=== PATIENT | female | born 1990 | race African-American/Black ===

== ENCOUNTER 2024-05-04 15:14 | Emergency (ER) | payer OTHER ==
[2024-05-04 15:32] VITALS: TEMP 98; BMI 36.8
[2024-05-04 17:13] LABS: BASO % 0.9 % (0-2.0); EOS % 2.4 % (0-4.5); LYMPH % 27.9 % (8-40); MCH 23.9 pg (25.7-33.7); MCHC 32.6 g/dl (32.0-36.0); MEAN CELL VOLUME 73.3 fl (80-96); MEAN PLT VOLUME 8.3 fl (7.5-11.1); MONO % 6.9 % (3.8-10.2); NEUT % 61.9 % (42.8-82.8); PLATELET COUNT 305 10^3/uL (134-434); RBC 5.04 M/mm3 (3.60-5.2); RDW 15.7 % (11.6-15.6); WHITE BLOOD COUNT 6.6 K/mm3 (4.0-10.0)
[2024-05-04 17:18] LABS: HCG,QUALITATIVE URINE Negative
[2024-05-04 17:19] LABS: EPI CELLS 12 /uL (0-25.1); HYALINE CASTS 1 /uL (0-3.1); URINE APPEARANCE CLEAR; URINE BACTERIA 11 /uL (0-1359); URINE BILIRUBIN NEGATIVE (NEGATIVE); URINE COLOR YELLOW; URINE GLUCOSE (UA) NEGATIVE (NEGATIVE); URINE KETONE TRACE (NEGATIVE); URINE LEUK ESTERASE NEGATIVE (NEGATIVE); URINE NITRITE NEGATIVE (NEGATIVE); URINE PROTEIN NEGATIVE (NEGATIVE); URINE RBC 8 /uL (0-23.9); URINE WBC 8 /uL (0-25.8)
[2024-05-04 17:52] LABS: POTASSIUM 4.2 mmol/L (3.5-5.1)
[2024-05-04 17:54] LABS: CALCIUM 9.4 mg/dL (8.5-10.1)
[2024-05-04 17:55] LABS: ALBUMIN 3.8 g/dl (3.4-5.0); BLOOD UREA NITROGEN 8.2 mg/dL (7-18)
[2024-05-04 17:58] LABS: CREATININE 0.9 mg/dL (0.55-1.3)
[2024-05-04 18:00] LABS: BILIRUBIN,TOTAL 0.7 mg/dL (0.2-1); TOT PROT 7.3 g/dl (6.4-8.2)
[2024-05-04] MEDS ORDERED: PANTOPRAZOLE SODIUM 40 MG VIAL ONE (18:52)
[2024-05-04] MEDS: PANTOPRAZOLE SODIUM 40 MG VIAL IVPUSH ONE (19:02)
[2024-05-04 20:24] VITALS: BP 112/72; PULSE 70; RESP 18
== END 2024-05-04 20:24 | disposition home or self-care (01) ==
LOC: JER 15:14
PROC: 3E033GC Introduction of Other Therapeutic Substance into Peripheral Vein, Percutaneous Approach (ICD-10-PCS; principal; 2024-05-04)
DX: R19.5 Other fecal abnormalities (principal); R10.84 Generalized abdominal pain
CPT/HCPCS: 36415; 74177-TC; 80053; 81003; 82272; 83690; 84703; 85025; 87077; 87086; 99285-25; Q9967

== ENCOUNTER 2024-07-27 15:52 | Emergency (ER) | payer OTHER ==
[2024-07-27 16:01] VITALS: TEMP 98.2; BMI 35.2
[2024-07-27] MEDS ORDERED: ACETAMINOPHEN INJECTION 100 ML ONE (16:50)
[2024-07-27] MEDS: ACETAMINOPHEN 1000 MG/100 ML BAG IVPB ONE (17:15)
[2024-07-27 17:22] LABS: BASO % 1.2 % (0-2.0); EOS % 3.7 % (0-4.5); HEMATOCRIT 39.8 % (32.4-45.2); HEMOGLOBIN 12.7 GM/dL (10.7-15.3); LYMPH % 24.5 % (8-40); MCH 23.2 pg (25.7-33.7); MCHC 31.9 g/dl (32.0-36.0); MEAN CELL VOLUME 72.5 fl (80-96); MEAN PLT VOLUME 8.7 fl (7.5-11.1); MONO % 8.5 % (3.8-10.2); NEUT % 62.1 % (42.8-82.8); PLATELET COUNT 359 10^3/uL (134-434); RBC 5.49 M/mm3 (3.60-5.2); RDW 16.1 % (11.6-15.6); WHITE BLOOD COUNT 6.9 K/mm3 (4.0-10.0)
[2024-07-27 17:38] LABS: POTASSIUM 4.3 mmol/L (3.5-5.1)
[2024-07-27 17:40] LABS: ALBUMIN 3.8 g/dl (3.4-5.0); BLOOD UREA NITROGEN 8.8 mg/dL (7-18); CALCIUM 9.5 mg/dL (8.5-10.1); MAGNESIUM 2.1 mg/dL (1.8-2.4)
[2024-07-27 17:44] LABS: CREATININE 0.9 mg/dL (0.55-1.3)
[2024-07-27 17:45] LABS: BILIRUBIN,TOTAL 0.4 mg/dL (0.2-1); TOT PROT 7.3 g/dl (6.4-8.2)
[2024-07-27 17:59] LABS: EPI CELLS >36 /uL (0-25.1); HCG,QUALITATIVE URINE Negative; HYALINE CASTS 1 /uL (0-3.1); URINE APPEARANCE CLEAR; URINE BACTERIA 330 /uL (0-1359); URINE BILIRUBIN NEGATIVE (NEGATIVE); URINE COLOR YELLOW; URINE GLUCOSE (UA) NEGATIVE (NEGATIVE); URINE KETONE TRACE (NEGATIVE); URINE LEUK ESTERASE 1+ (NEGATIVE); URINE NITRITE NEGATIVE (NEGATIVE); URINE PROTEIN NEGATIVE (NEGATIVE); URINE RBC 17 /uL (0-23.9); URINE UROBILINOGEN 0.2 mg/dL (0.2-1.0); URINE WBC 26 /uL (0-25.8)
[2024-07-27 19:25] LABS: HIV INTERPRETATION NEGATIVE (NEGATIVE)
[2024-07-27] MEDS ORDERED: FLUCONAZOLE 150 MG TABLET PO ONE (19:44)
[2024-07-27] MEDS ORDERED: CEFTRIAXONE 1 GM/50 ML BAG ONE (19:45)
[2024-07-27] MEDS: FLUCONAZOLE 150 MG TABLET PO ONE (19:52)
[2024-07-27 22:08] VITALS: BP 130/84; PULSE 72; RESP 18
== END 2024-07-27 22:11 | disposition home or self-care (01) ==
LOC: JER 15:52
PROC: 3E033NZ Introduction of Analgesics, Hypnotics, Sedatives into Peripheral Vein, Percutaneous Approach (ICD-10-PCS; principal; 2024-07-27)
PROC: 3E03329 Introduction of Other Anti-infective into Peripheral Vein, Percutaneous Approach (ICD-10-PCS; 2024-07-27)
DX: R53.1 Weakness (principal); N39.0 Urinary tract infection, site not specified; R51.9 Headache, unspecified; Z20.822 Contact with and (suspected) exposure to COVID-19
CPT/HCPCS: 0241U-QW; 36415; 70450-TC; 71045-TC-FY; 80053; 81003; 83735; 84703; 85025; 86803; 87081; 87086; 87186; 87389; 93005; 93010; 99285-25; J0131